=== PATIENT | female | born 1950 | race Caucasian/White ===

== ENCOUNTER 2016-05-16 06:23 | Inpatient (IN) ==
[2016-05-16] MEDS ORDERED: Clindamycin 900 MG/50 ML 900 MG/50 ML IV.SOLN IVPB ONE (06:45)
[2016-05-16] MEDS ORDERED: Ringers Solution, Lactated 1,000 ML IVC SCH (06:45)
[2016-05-16] MEDS ORDERED: *HR* FentaNYL (PF) 100 MCG/2 ML VIAL ONE (06:56)
[2016-05-16] MEDS ORDERED: *HR* Propofol 200 MG/20 ML VIAL IVP ONE (06:56)
[2016-05-16] MEDS ORDERED: *HR* Midazolam HCl 2 MG/2 ML VIAL ONE (06:56)
[2016-05-16] MEDS ORDERED: *HR* Rocuronium Bromide 50 MG/5 ML VIAL ONE (06:57)
[2016-05-16] MEDS ORDERED: *HR* Succinylcholine 200 MG/10 ML VIAL IVP ONE (06:57)
[2016-05-16] MEDS ORDERED: Ondansetron 4 MG/2 ML VIAL ONE (06:57)
[2016-05-16] MEDS ORDERED: Dexamethasone 4 MG/ML VIAL ONE (06:57)
[2016-05-16] MEDS ORDERED: Lidocaine -MPF 2% 2 ML VIAL ONE (06:57)
[2016-05-16] MEDS ORDERED: *HR* Phenylephrine 10 MG/ML VIAL ONE (07:01)
[2016-05-16] MEDS ORDERED: Lidocaine -MPF 4% 5 ML AMPUL ONE (07:01)
[2016-05-16] MEDS ORDERED: *HR* Remifentanil 1 MG VIAL IVP ONE ×2 (07:04)
[2016-05-16] MEDS ORDERED: *HR* Labetalol 100 MG/20 ML MDV IVP PRN (07:22)
[2016-05-16] MEDS ORDERED: *HR* Promethazine 25 MG/ML VIAL IVP PRN (07:22)
[2016-05-16] MEDS ORDERED: Gabapentin 300 MG CAPSULE PO STA (07:23)
--- NOTE | 2016-05-16 07:27 | Anesthesia Evaluation PreOp ---
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 NO residual weakness/deficits), Other (Anxiety/Depression maintained on Clonazepam. Lumbar radiculopathy L=RLE numbness, tingling, weakness) Other Medical History: Denies Any Significant HX Anesthesia History: No Prior Anesthetic Complications, Past Anesthesia (L-TKR, R -TKR 2014, Yovana, Appy, Hyster, B-CTR) Alcohol Use: none Drug use: none Medications and Allergies Albuterol Sulfate [Albuterol Inhaler] 2 puff IH Q4HR PRN 05/16/16 [History] Amlodipine Besylate 10 mg PO DAILY 05/16/16 [History] Atorvastatin Calcium [Lipitor] 20 mg PO HS 05/16/16 [History] Citalopram Hydrobromide [Celexa] 20 mg PO DAILY 05/16/16 [History] ClonazePAM [Klonopin] 0.5 mg PO BID 05/16/16 [History] Fenofibrate [Tricor] 54 mg PO DAILY 05/16/16 [History] Fluticasone Propionate Nasal [Flonase] 1 spr NS DAILY PRN 05/16/16 [History] Loratadine [Claritin] 10 mg PO DAILY 05/16/16 [History] Nystatin Cream [Mycostatin Cream] 1 appl TP BID PRN 05/16/16 [History] Omeprazole [PriLOSEC] 40 mg PO DAILY 05/16/16 [History] Oxaprozin [Daypro] 600 mg PO BID 05/16/16 [History] Tramadol HCl [Ultram] 50 mg PO Q6H PRN 05/16/16 [History] Allergies Penicillins Allergy (Verified 05/16/16 07:08) Hives aspirin Adverse Reaction (Verified 05/16/16 07:08) Nausea - Meds/Allergy Pre-op Review Medications Reviewed: Yes Allergies Reviewed: Yes Beta Blockers on Current Med List: No Anesthesia Results - Labs Laboratory Tests 12/29/16 12/29/16 12/29/16 12:30 12:30 12:30 WBC 3.8 L Hgb 14.8 Hct 43.3 Plt Count 240 PT 11.2 INR 1.0 APTT 31.8 Sodium 139 Potassium 3.7 Chloride 106 Carbon Dioxide 24 BUN 13 Creatinine 0.78 Est GFR (Non-Af Amer) > 60 - Imaging EKG: image reviewed Anesthesia Exam O2 Sat Height 1.52 m Height 1.52 m Weight 82.554 kg Weight 82.554 kg O2 Sat by Pulse Oximetry 96 O2 Sat by Pulse Oximetry 96 Vital Signs Temp Pulse Resp BP Pulse Ox 98.3 F 84 18 159/88 96 05/16/16 06:40 05/16/16 06:40 05/16/16 06:40 05/16/16 06:40 05/16/16 06:40 Height: 5'0 Weight: 178# BMI = 36 NPO (# of Hours): MNoc - HEENT Pupil (Motor): Pupils equal, EOMI Mallampati: II Teeth: Normal, Missing (fair dentition with multiple front lower teeth missing) Oral Opening: Greater than 3 - ASSEMBLY MEMBER LOC: Oriented [employer]SEM[employer] MEMBER Motor: Normal RUE, Normal LUE, Normal RLE, Normal LLE, Normal Face [employer]SEM[employer] MEMBER Sensory: Normal: RUE, LUE, RLE, LLE, Face - Cardiac Rhythm: Regular Murmur: None - Pulmonary Breath Sounds: bilateral Clear Respiratory Effort: Symmetrical Anesthesia Assess/Plan ASA Score: 3 Modified [place] Scale for Level of Consciousness: Cooperative, oriented, and tranquil Anesthetic Plan: General Monitoring Plan: Standard Monitors Recovery Plan: PACU Anes Supervising Prov Stmt: Pt seen/evaluated, R&B discussed, questions answered and consent obtained. Sera Gandhi MD
--- NOTE | 2016-05-16 07:41 | History & Physical Report ---
Date of Encounter: 05/16/16 Time of Encounter: 07:30 24 Hour HP Update - Instructions Instructions: If the History and Physical is less than 30 days old and was completed prior to A.M. admission and or procedure and has NOT been updated on calendar day of procedure please complete this update prior to performing procedure. - Update Patient reports changes in Medical Condition: No Changes in assessment/condition: No Changes in Medication: No Preop tests/diagnostics Reviewed: Yes Pre-Op MRSA Screen: Negative Surgery Remains Indicated: Yes Consent for Planned Operative Procedure(s) Verified: Yes - Pre-Operative Checklist Preoperative Checklist Indicated: No Prophylactic Antibiotic Ordered: Yes Home Medications Include Beta Adeel: No Beta Adeel Taken Today (Day of Surgery): No Beta Adeel Taken Yesterday (Day Prior to Surgery): No Is VTE Prophylaxis Indicated?: Yes
[2016-05-16] MEDS ORDERED: EPHEDrine 50 MG/ML VIAL ONE (08:06)
[2016-05-16] MEDS ORDERED: Neostigmine Methylsulfate 3 MG/3 ML SYRINGE ONE (10:40)
[2016-05-16] MEDS ORDERED: *HR* HYDROmorphone 2 MG/ML SYRINGE ONE (10:44)
--- NOTE | 2016-05-16 11:04 | Orthopedic Operative Note ---
Date of procedure: 05/16/16 Pre-op diagnosis: spondylolisthesis, lumbar stenosis Post-op diagnosis: same Operation/Findings: Posterior lumbar interbody fusion L4-L5: The patient successfully underwent general endotracheal anesthesia. The patient was given antibiotics prior to the start of the procedure. Compression boots and stockings were used for deep vein thrombosis prophylaxis. A Hinds catheter was placed. Leads for neuro monitoring were placed on the upper and lower extremities. This included the cranium. The neuro monitoring personnel confirmed there were satisfactory readings prior to the start of the procedure. The patient was turned prone on the Curtis table. The back was prepped and draped in the usual sterile fashion. An incision was was marked and centered over the involvedL4-5 levels in the mid line. The incision was deepened through the lumbar fascia. Bovie cautery and Greenwood elevators were used to reflect the paraspinal musculature at the lateral extent of the L4 and L5 transverse processes of the involved levels. Shantelle clamps were placed over the L4 and L5 spinous processes. An intraoperative lateral fluoroscopy graft was obtained. A conversation was held between the surgeon and radiologist and both confirmed we had the correct operative levels. We then placed pedicle screws in standard fashion with the aid of fluoroscopy and anatomic landmarks. Briefly a starter awl was used. A gearshift was subsequently used to enter the aeroplane pilot hole via a transpedicular route into the vertebral body. The aeroplane pilot hole was tapped with an undersized instrument, and subsequently four 6.5 x 40 mm pedicle screws were placed bilaterally at the indicated L4 and L5 levels. The screws were tested with the aid of the neurologic monitoring staff via pedicle screw stimulation. All reading suggested there was no significant cortical wall breech. The screws were also evaluated fluoro- graphically and appeared to be in satisfactory position. We then turned our attention to the decompression portion of the procedure. We removed the supraspinous and interspinous ligaments and subsequently the insertion of the ligamentum flavum on the undersurface of the proximal L4 lamina was dislodged with a curette. We then removed the ligamentum flavum as well as undercut the L4-5 facets at this level to decompress the lateral recesses. We also performed a L4 laminectomy. After the decompression which was over and above that which was required to place the interbody graft, the foramen and traversing roots at this L4-5 level were found to be free and patent. We also took part of the medial facet in order to aid in the decompression,. We then protected the neural elements including the thecal sac and traversing nerve root on the left with a dural retractor. We made an annulotomy into the L4-5 disc space and then removed entire disc material using Pituitary instruments. We trialed various size grafts after the endplates were prepared for graft insertion. A 10 x 26 enter body graft fit well within the L4-5 disc space. We obtained some bone from the left posterior superior iliac spine through us a separate incision and combined with this with the bone which we had saved from the laminectomy portion of the procedure. This autograft bone was first placed in the anterior portion of the L4-5 disc space and additional bone was placed within the interbody graft spacer. We then placed the interbody graft spacer obliquely across the disc space towards the midline while protecting the neural elements with a root retractor. When the graft was found to be in satisfactory position the mill dresser was removed. We then copiously irrigated the wound. We then decorticated the L4 and L5 transverse processes as well as the L4-5 facet joints of the involved levels to aid in the posterolateral fusion. We placed autograft bone in the lateral gutters over these regions. We then placed rods within the screw heads of the involved L4 and L5 levels and first locked the distal screws and then subsequently locked the proximal screws so as to improve and reduce the spondylolisthesis previously seen. We then closed the wound in layers with 1 Vicryl for the fascia, 2-0 Vicryl. Subcutaneous tissue, and Dermabond was used for skin closure. Sterile dressings were placed over the wound. The patient was turned supine on a hospital bed and extubated. All sponge instruments and needle counts were correct at the end of the procedure. The patient tolerated the procedure well without complications. Anesthesia: GETA Surgeon: López Stein Jr Estimated blood loss (cc): 150 Condition: stable Disposition: PACU
[2016-05-16] MEDS: *HR* HYDROmorphone (PF) 1 MG/ML SYRINGE IVP PRN ×2 (11:16→11:26)
[2016-05-16] MEDS ORDERED: CloNIDine Patch 0.1 MG PATCH (WEEKLY) TD ONE (11:36)
[2016-05-16] MEDS ORDERED: Ketorolac 30 MG/ML VIAL IVP ONE (11:36)
[2016-05-16] MEDS ORDERED: Fluticasone Propionate Nasal 50 MCG/SPRAY BOTTLE NS PRN (12:16)
[2016-05-16] MEDS ORDERED: Naloxone 0.4 MG/ML INJ IVP PRN (12:16)
[2016-05-16] MEDS ORDERED: Sennosides 8.6 MG TABLET PO PRN (12:16)
[2016-05-16] MEDS ORDERED: Nystatin Cream 15 GM TUBE TP PRN (12:16)
[2016-05-16] MEDS ORDERED: *HR* Morphine 2 MG/ML SYRINGE IVP PRN (12:16)
--- NOTE | 2016-05-16 12:16 | Anesthesia Evaluation Post Op ---
Date of Encounter: 05/16/16 Time of Encounter: 12:15 - Vital Signs Vital Signs: Vital Signs/O2 Sat/Glucose, Most Current Temp Pulse Resp BP Pulse Ox 05/16/16 12:00 97.4 F L 76 12 120/69 95 05/16/16 11:50 82 12 121/74 96 05/16/16 11:40 97.4 F L 76 8 130/76 94 L 05/16/16 11:30 80 10 132/72 94 L 05/16/16 11:20 84 16 141/78 98 05/16/16 11:10 97.5 F L 102 18 131/78 99 - Lungs Lungs: Clear Ascult./Percussion - Airway Airway: Non-obstructed - Cardiovascular Regular Rate - Mental Status Mental Status: Asleep with brisk response to light stimulation - Pain Pain Scale: 2 Pain Scale used: LinkPrabhakar (Faces) - Nausea Vomiting Nausea Vomiting: Responds to treatment with IV Meds - Hydration Hydration: NPO, Hinds catheter - Discharge PostOp Status: Transfer Patient to floor Anes Supervising Prov Stmt: Pt seen/evaluated, VSS and pt has met criteria for discharge to home. - MD Oksana
[2016-05-16] MEDS ORDERED: Clindamycin 600 MG/50 ML 600 MG/50 ML IV.SOLN IVPB SCH (16:00)
[2016-05-16] MEDS: clonazePAM 0.5 MG TABLET PO SCH (21:01)
[2016-05-16] MEDS: *HR* OxyCODONE Immed Rel 5 MG TABLET PO PRN (21:01)
[2016-05-16] MEDS: Ringers Solution, Lactated 1,000 ML IVC SCH (21:44)
[2016-05-17] MEDS: Clindamycin 600 MG/50 ML 600 MG/50 ML IV.SOLN IVPB SCH ×2 (00:18→06:00)
[2016-05-17] MEDS: *HR* Morphine 2 MG/ML SYRINGE IVP PRN (00:18)
[2016-05-17] MEDS: *HR* OxyCODONE Immed Rel 5 MG TABLET PO PRN ×3 (04:43→15:31)
[2016-05-17 07:17] LABS: BUN/Creatinine Ratio 13 (6-26); Blood Urea Nitrogen 9 mg/dL (7-20); Carbon Dioxide 24 mEq/L (19-29); Chloride 108 mEq/L (98-109); Glucose 96 mg/dL (70-99); Osmolality,Calculated 287 (280-300); Potassium 3.9 mEq/L (3.5-4.5); Sodium 139 mEq/L (136-145); eGFR For African Americans > 60 (> 60); eGFR For Non-African Americans > 60 (> 60)
[2016-05-17] MEDS: Loratadine 10 MG TABLET PO SCH (09:11)
[2016-05-17] MEDS: Fenofibrate 54 MG TABLET PO SCH (09:12)
[2016-05-17] MEDS: amLODIPine 5 MG TABLET PO SCH (09:12)
[2016-05-17] MEDS: clonazePAM 0.5 MG TABLET PO SCH ×2 (09:12→22:08)
[2016-05-17] MEDS: Ringers Solution, Lactated 1,000 ML IVC SCH ×2 (11:31→22:08)
[2016-05-17] MEDS: Ondansetron 4 MG/2 ML VIAL IVP PRN ×2 (11:44→17:52)
--- NOTE | 2016-05-17 12:00 | Spine Progress Note ---
Date of Encounter: 05/17/16 Time of Encounter: 11:59 Subjective Principal diagnosis: spondylolisthesis, lumbar stenosis Interval history: The patient is without complaints. Afebrile vital signs are stable. Dressing is clean dry and intact. Neurovascularly intact with regard to bilateral lower extremities. Fires all upper and lower extremity motor groups. . Assessment : stable. Plan mobilize ,continue analgesics, discharge planning. Objective Vital signs: Vital Signs Temp Pulse Resp BP Pulse Ox 05/17/16 10:55 98.3 F 87 18 117/73 95 05/17/16 06:47 98.3 F 86 14 128/72 96 05/17/16 04:00 98.2 F 73 16 95/55 92 L 05/17/16 00:30 94 L 05/17/16 00:00 98.0 F 66 16 104/66 94 L 05/16/16 20:00 97.9 F 82 16 107/69 96 05/16/16 15:21 98.0 F 99 12 108/72 96 05/16/16 15:05 97.7 F 94 18 107/71 96 05/16/16 14:25 97.9 F 80 13 102/67 96 05/16/16 13:21 97.7 F 94 13 129/72 95 05/16/16 13:15 95 05/16/16 12:49 97.5 F L 87 12 131/68 94 L 05/16/16 12:20 98.0 F 81 12 113/64 95 05/16/16 12:00 97.4 F L 76 12 120/69 95 Intake and Output 05/16/16 05/17/16 05/17/16 23:59 07:59 15:59 Intake Total 1775 / 1775 360 / 360 Output Total 1700 / 1700 750 / 750 Balance 75 / 75 -390 / -390 Intake: IV Fluids 1050 / 1050 Lactated Ringers 1,000 ML 1000 / 1000 @ 100 mls/hr IVC .Q10H ROLANDO Rx#:[id number] Cleocin 600 MG/50 ML 600 50 / 50 mg In 50 ml @ 50 mls/hr IVPB Q8HR ROLANDO Rx#: [id number] Oral 725 / 725 360 / 360 Output: Urine 900 / 900 750 / 750 Catheter 800 / 800 Other: Meal Breakfast - Labs CBC & BMP: 05/17/16 05:37 Consult Discharge Plan - Plan Referrals: Dionna Buckner [Primary Care Provider] -
[2016-05-18] MEDS: *HR* OxyCODONE Immed Rel 5 MG TABLET PO PRN ×2 (04:18→17:23)
[2016-05-18] MEDS: Ondansetron 4 MG/2 ML VIAL IVP PRN (04:18)
[2016-05-18] MEDS: amLODIPine 5 MG TABLET PO SCH (09:17)
[2016-05-18] MEDS: clonazePAM 0.5 MG TABLET PO SCH ×2 (09:17→20:19)
[2016-05-18] MEDS: Fenofibrate 54 MG TABLET PO SCH (09:17)
[2016-05-18] MEDS: Loratadine 10 MG TABLET PO SCH (09:17)
[2016-05-18] MEDS: *HR* Morphine 2 MG/ML SYRINGE IVP PRN ×2 (09:50→20:20)
--- NOTE | 2016-05-18 13:35 | Spine Progress Note ---
Date of Encounter: 05/18/16 Time of Encounter: 13:34 Subjective Principal diagnosis: spondylolisthesis, lumbar stenosis Interval history: The patient is without complaints. Afebrile vital signs are stable. Incision is clean dry and intact. Neurovascularly intact with regard to bilateral lower extremities. Fires all upper and lower extremity motor groups. . Assessment : stable. Plan mobilize ,continue analgesics, discharge planning, likely to rehabilitation. Objective Vital signs: Vital Signs Temp Pulse Resp BP Pulse Ox 05/18/16 10:58 98.7 F 88 16 115/66 94 L 05/18/16 09:28 96 05/18/16 06:51 98.9 F 96 16 118/64 87 L 05/18/16 04:00 100.5 F H 87 16 114/68 93 L 05/18/16 00:00 99.3 F 87 16 102/66 92 L 05/17/16 19:00 98.2 F 79 17 121/74 94 L 05/17/16 15:11 98.5 F 83 16 109/69 94 L Intake and Output 05/17/16 05/18/16 05/18/16 23:59 07:59 15:59 Intake Total 1240 / 1240 200 / 200 Output Total 325 / 325 Balance 1240 / 1240 -125 / -125 Intake: IV Fluids 1000 / 1000 Lactated Ringers 1,000 ML 1000 / 1000 @ 100 mls/hr IVC .Q10H ROLANDO Rx#:[id number] Oral 240 / 240 200 / 200 Output: Urine 325 / 325 Other: Meal Dinner Percent of Meal Consumed 15% - Labs CBC & BMP: 05/17/16 05:37 Consult Discharge Plan - Plan Referrals: Dionna Buckner [Primary Care Provider] - Angelita Wynn, PAC [Physician Cushion Gum Applicator] - 05/30/16 9:40 am
[2016-05-19] MEDS: Methyl Salicylate/Menthol 28 GM TUBE TP PRN ×2 (00:04→15:11)
[2016-05-19] MEDS: *HR* OxyCODONE Immed Rel 5 MG TABLET PO PRN ×2 (00:11→08:58)
[2016-05-19] MEDS: *HR* Morphine 2 MG/ML SYRINGE IVP PRN (05:04)
[2016-05-19 07:19] VITALS: BP 118/67
[2016-05-19] MEDS: amLODIPine 5 MG TABLET PO SCH (08:58)
[2016-05-19] MEDS: Fenofibrate 54 MG TABLET PO SCH (08:58)
[2016-05-19] MEDS: Loratadine 10 MG TABLET PO SCH (08:58)
[2016-05-19] MEDS: clonazePAM 0.5 MG TABLET PO SCH (08:58)
--- NOTE | 2016-05-19 12:47 | Discharge Summary ---
Date of Encounter: 05/19/16 Time of Encounter: 12:45 - Discharge Diagnosis (1) Spondylolisthesis Priority: Primary Status: Chronic Qualifiers: Spinal region: lumbar Qualified Code(s): M43.16 - Spondylolisthesis, lumbar region (2) Lumbar stenosis Priority: Secondary Status: Chronic - Discharge Medications Prescriptions: OxyCODONE Immed Rel [Roxicodone 5 MG] 5 mg PO Q6HR PRN #20 tablet PRN Reason: Severe Pain Home Medications: Albuterol Sulfate [Albuterol Inhaler] 2 puff IH Q4HR PRN 05/16/16 [History] Amlodipine Besylate 10 mg PO DAILY 05/16/16 [History] Atorvastatin Calcium [Lipitor] 20 mg PO HS 05/16/16 [History] Citalopram Hydrobromide [Celexa] 20 mg PO DAILY 05/16/16 [History] ClonazePAM [Klonopin] 0.5 mg PO BID 05/16/16 [History] Fenofibrate [Tricor] 54 mg PO DAILY 05/16/16 [History] Fluticasone Propionate Nasal [Flonase] 1 spr NS DAILY PRN 05/16/16 [History] Loratadine [Claritin] 10 mg PO DAILY 05/16/16 [History] Nystatin Cream [Mycostatin Cream] 1 appl TP BID PRN 05/16/16 [History] Omeprazole [PriLOSEC] 40 mg PO DAILY 05/16/16 [History] Oxaprozin [Daypro] 600 mg PO BID 05/16/16 [History] Tramadol HCl [Ultram] 50 mg PO Q6H PRN 05/16/16 [History] OxyCODONE Immed Rel [Roxicodone 5 MG] 5 mg PO Q6HR PRN #20 tablet 05/19/16 [Rx] Allergies/Adverse Reactions: Allergies Penicillins Allergy (Verified 05/16/16 07:08) Hives aspirin Adverse Reaction (Verified 05/16/16 07:08) Nausea - Impressions ITS Impressions Fluoroscopy 05/16/16 08:25 IMPRESSION: Intraprocedural fluoroscopic spot images as above. See separate procedure report for more information. Portable lumbar spine shows fusion of L4-5. D/ / 05/16/2016 11:28:55 Panfilo Garcia MD / Tequila Still Interpreting Provider: Panfilo Garcia MD Lumbar Spine X-Ray 05/16/16 08:25 IMPRESSION: Intraprocedural fluoroscopic spot images as above. See separate procedure report for more information. Portable lumbar spine shows fusion of L4-5. D/ / 05/16/2016 11:28:55 Panfilo Garcia MD / Tequila Still Interpreting Provider: Panfilo Garcia MD Date of admission: 05/16/16 12:36 Primary care physician: Dionna Buckner Consults: 05/16/16 12:16 Consult to Occupational Therapy [CONS] Routine Comment: Evaluate, develop and implement POC Consult to Physical Therapy [CONS] Routine Comment: Evaluate, develop and implement POC Consult to Spine Navigator [CONS] [CONS] Routine - Patient Status Disposition: Transfer SNF Condition: Good Functional capacity at discharge: uses cane/walker Overall status at discharge: patient is progressing back to baseline - Discharge Instructions Follow Up With: Dionna Buckner [Primary Care Provider] - Angelita Wynn PAC [Physician Dry Cleaning Manager] - 05/30/16 9:40 am Additional Instructions: Discharge Instructions: Lumbar Please call [facility] ([phone]), your Primary Care Physician, or report to the ER if you have any of the following symptoms: Fever greater that 101.5, increased pain/redness/drainage/odor for your incision site or any other concerning symptoms. ACTIVITY * May Shower * No Tub Baths * No lifting greater than 10 pounds * No Smoking * No Swimming * No off Ground Activities (Running, Climbing, Ladders, Horseback Riding) * No Driving * Wear Back Brace when up walking if lumbar fusion done MEDICATIONS: Upon discharge resume your home medications. Take all the medications as prescribed. Take a stool softener if taking narcotic pain medications. Stool softeners are only effective if you drink enough fluids. Drink 6-8 glass of water or fluids a day, unless this is not allowed for another health problem. Despite using stool softeners, if you haven't had a bowel movement in 3 days, please switch to a gentle laxative. Gentle laxatives are sold over the counter. You should have a bowel movement within 24 hours, if not call the office. You will be discharged from the hospital with a prescription for pain medication. You are encouraged to decrease the use of narcotic pain medication as tolerated. Should you require a refill, please call the office. It is best to call 48-72 hours in advance of needing a prescription refill so you don't run out of medication. WOUND CARE: Remove Dressing Tomorrow. Leave incision open to air. Pat dry when you get out of the shower. FOLLOW-UP: Please follow up with your surgeon in the orthopedic clinic in 2 weeks from the day of surgery. References: [employer] (www.apta.org) - Diet and Activity Activity: as per physical therapy - Hospital Course Hospital course: Ms. Tuttle is a 65 year old female The patient had an uneventful postoperative course. Progressed from intravenous analgesic needs to oral analgesic needs only. Remained neurovascularly intact and mobilized satisfactorily. All intraoperative and/or postoperative radiographic studies were satisfactory. Patient is discharged with plan for rehabilitation and follow-up in 2 weeks post discharge on analgesic medication and patient's home medications. - Time Spent with Patient Total time spent providing and/or coordinating discharge services: - VTE Documentation of Mechanical Device: Intermittent pneumatic compression device
== END 2016-05-19 17:28 | DRG 460 ==
LOC: SAMDAY 06:23 → 3NENU 12:36
PROVIDERS: ADMIT Orthopaedic Surgery Orthopaedic Surgery of the Spine; ATTEND Orthopaedic Surgery Orthopaedic Surgery of the Spine

== ENCOUNTER 2017-12-03 14:48 | Inpatient (IN) ==
--- NOTE | 2017-12-02 22:13 | Discharge Summary ---
<Martin El - Last Filed: 12/03/17 15:45> Orders not resulted at time of discharge: Pending orders 12/03/17 00:01 XR knee LT limited 1-2V [XR] Routine H/H [Hemoglobin and Hematocrit] [HEME] Routine Date of Encounter: 12/03/17 - Discharge Diagnosis (1) Obesity (BMI 35.0-39.9 without comorbidity) Priority: Secondary Status: Chronic (2) Spondylolisthesis Priority: Secondary Status: Chronic Qualifiers: Spinal region: lumbar Qualified Code(s): M43.16 - Spondylolisthesis, lumbar region (3) Lumbar stenosis Priority: Secondary Status: Chronic Qualifiers: Neurogenic claudication status: unspecified Qualified Code(s): M48.061 - Spinal stenosis, lumbar region without neurogenic claudication (4) Loosening of knee joint prosthesis Priority: Primary Status: Chronic Qualifiers: Encounter type: subsequent encounter Qualified Code(s): T84.038D - Mechanical loosening of other internal prosthetic joint, subsequent encounter; Z96.659 - Presence of unspecified artificial knee joint (5) HTN (hypertension) Priority: Secondary Status: Chronic Qualifiers: Hypertension type: essential hypertension Qualified Code(s): I10 - Essential (primary) hypertension (6) HLD (hyperlipidemia) Priority: Secondary Status: Acute Qualifiers: Hyperlipidemia type: unspecified Qualified Code(s): E78.5 - Hyperlipidemia , unspecified (7) Status post revision of total knee Priority: Primary Status: Acute Qualifiers: Laterality: left Qualified Code(s): Z96.652 - Presence of left artificial knee joint - Hospital Course Hospital course: Ms. Tuttle is a 67 year old female - Time Spent with Patient Total time spent providing and/or coordinating discharge services: - Discharge Medications Prescriptions: Rivaroxaban [Xarelto] 15 mg PO BID 21 Days #42 tablet Home Medications: Fluticasone Propionate Nasal [Flonase] 1 spr NS DAILY PRN 05/16/16 [History] Loratadine [Claritin] 10 mg PO DAILY 05/16/16 [History] Nystatin Cream [Mycostatin Cream] 1 appl TP BID PRN 05/16/16 [History] Omeprazole [PriLOSEC] 40 mg PO DAILY 05/16/16 [History] OxyCODONE Immed Rel [Roxicodone 5 MG] 5 mg PO Q6HR PRN 7 Days #28 tablet [Rx] Amlodipine Besylate 10 mg PO DAILY 12/03/17 [History] Gabapentin [Neurontin] 600 mg PO TID 12/03/17 [History] Oxybutynin Chloride [Ditropan Xl] 5 mg PO BID 12/03/17 [History] Ranitidine HCl [Heartburn Relief] 150 mg PO HS 12/03/17 [History] Simvastatin [Zocor] 5 mg PO HS 12/04/17 [History] clonazePAM [Klonopin] 1 mg PO TID PRN 12/04/17 [History] Cyclobenzaprine [Flexeril] 10 mg PO TID PRN tablet 12/05/17 [Rx] Rivaroxaban [Xarelto] 15 mg PO BID 21 Days #42 tablet 12/05/17 [Rx] Allergies/Adverse Reactions: 3 Allergy/AdvReac Type Severity Reaction Status Date / Time iodine Allergy Rash Verified 12/03/17 15:34 niacin Allergy Hives Verified 12/03/17 15:34 [From Niaspan Extended-Release] Penicillins Allergy Hives Verified 05/16/16 07:08 Sulfa (Sulfonamide Allergy Rash Verified 12/03/17 15:34 Antibiotics) aspirin AdvReac Nausea Verified 05/16/16 07:08 Primary care physician: Dionna Buckner - Patient Status Disposition: Transfer Inpatient Rehab Fac Condition: Good - Discharge Instructions Follow Up With: Dionna Buckner [Primary Care Provider] - Martin El MD [Partnered Physician] - 01/02/18 4:40 pm Ayah Portillo PAC [Physician Loom Technician] - 12/13/17 9:45 am (ALSO, 12/21/17 @ 9AM) Additional Instructions: Discharge Instructions: Total Knee Replacement Please call [facility] ([phone]), your Primary Care Physician, or report to the Emergency Room if you have any of the following symptoms: Nausea, vomiting, fever greater that 101.5, swelling, chest pain, shortness of breath, increased pain/redness/drainage/odor for your incision site, numbness/ tingling, or any other concerning symptoms. ACTIVITY:Weight-bearing as tolerated. You may progress off support (crutches or walker) as tolerated. MEDICATIONS: Upon discharge resume your home medications. Take all the medications as prescribed. Take a stool softener if taking narcotic pain medications. Stool softeners are only effective if you drink enough fluids. Drink 6-8 glass of water or fluids a day, unless this is not allowed for another health problem. Despite using stool softeners, if you haven't had a bowel movement in 3 days, please switch to a gentle laxative. Gentle laxatives are sold over the counter. You should have a bowel movement within 24 hours, if not call the office. You will be discharged from the hospital with a prescription for pain medication. You are encouraged to decrease the use of narcotic pain medication as tolerated. Should you require a refill, please call the office. [facility] prescribes narcotic pain medication for only 4-6 weeks after surgery. If you require pain medication beyond this time period, you may be referred to your Primary Care Physician or to the Pain Clinic for further evaluation. Plan ahead for refills on pain medication as many narcotics either need to be picked up at the office or mailed. It is best to call 48-72 hours in advance of needing a prescription refill so you don't run out of medication. To help control the post-operative pain, you may take NSAIDs (Aleve,Advil, Motrin, Ibuprofen, Naprosyn) or Tylenol as prescribed on the bottle in addition to the pain medication. ANTICOAGULATION (blood thinners): Continue your Aspirin, Lovenox or Coumadin as prescribed to help prevent a blood clot in the leg or in the lungs. As long as your incision remains dry and you tolerate the NSAIDs (Aleve, Advil, Motrin, ibuprofen, naprosyn), it is OK to use the NSAIDS while you are taking your anticoagulation medication. Should your incision start to drain, stop the NSAID and contact our office. Common symptoms of blood clot in the legs include: localized pain, swelling, calf tenderness, redness or discoloration of the skin. Blood clot in the lung symptoms include: shortness of breath, rapid pulse, sweating, and chest pain that worsens with deep breathing, coughing up blood, lightheadedness, feelings of anxiety. If you experience any of these symptoms notify your physician immediately, go to the emergency room, or if having trouble breathing, call 911. WOUND CARE: Leave the dressing on for 7 to 10days. You may change the dressing if it becomes saturated greater than 50%. Do not get the dressing wet at anytime. Wash your hands with antibacterial soap, rinse and dry prior to any wound care. If you have sandy the visiting nurse or rehab facility can remove the stapes 10-14 days after surgery and place steri-strips across the wound. Leave the steri-strips in place until they fall off on their won. You may let water from the shower run on top of the steri-strips. If you do not have a visiting nurse or rehab facility, you will need to return to the office at 10-14 days for the sandy to be removed. If you have itching or redness around the dressing call the office. FOLLOW-UP: Please follow up with your surgeon in the orthopedic clinic in 4 weeks from the day of surgery. If you have sandy that need to be removed, you will need to come back to the office in 10-14 days from the day of surgery. <Ayah Portillo - Last Filed: 12/05/17 08:56> Date of Encounter: 12/05/17 - Discharge Diagnosis (1) Status post revision of total knee Priority: Primary Status: Acute Qualifiers: Laterality: left Qualified Code(s): Z96.652 - Presence of left artificial knee joint (2) Loosening of knee joint prosthesis Priority: Primary Status: Chronic Qualifiers: Encounter type: subsequent encounter Qualified Code(s): T84.038D - Mechanical loosening of other internal prosthetic joint, subsequent encounter; Z96.659 - Presence of unspecified artificial knee joint (3) HTN (hypertension) Priority: Secondary Status: Chronic Qualifiers: Hypertension type: essential hypertension Qualified Code(s): I10 - Essential (primary) hypertension (4) HLD (hyperlipidemia) Priority: Secondary Status: Acute Qualifiers: Hyperlipidemia type: unspecified Qualified Code(s): E78.5 - Hyperlipidemia , unspecified (5) Obesity Priority: Secondary Status: Chronic Qualifiers: Obesity type: due to excess calories Obesity classification: adult class 2 (BMI 35 - 39.9) Serious obesity comorbidity presence: without serious comorbidity Body mass index: BMI 37.0-37.9 Qualified Code(s): E66.09 - Other obesity due to excess calories; Z68.37 - Body mass index (BMI) 37.0-37.9, adult (6) Allergic to aspirin Priority: Secondary Status: Chronic (7) DVT (deep venous thrombosis) Priority: Primary Status: Acute Comments: Started on Xarelto 15mg BID on 12/04/17. Will continue this until December 25. Will then transition to Xarelto 20mg once daily. Qualifiers: DVT location: lower extremity Affected thrombotic vein of extremity: tibial Chronicity: acute Laterality: left Qualified Code(s): I82.442 - Acute embolism and thrombosis of left tibial vein (8) Obesity (BMI 35.0-39.9 without comorbidity) Status: Chronic (9) Lumbar stenosis Status: Chronic Qualifiers: Neurogenic claudication status: unspecified Qualified Code(s): M48.061 - Spinal stenosis, lumbar region without neurogenic claudication - Hospital Course Hospital course: Ms. uTttle is a 67 year old female Diagnosed with DVT on 12/04 - Started on Xarelto 15mg BID on 12/04/17. Will continue this until December 25. Will then transition to Xarelto 20mg once daily. - Time Spent with Patient Total time spent providing and/or coordinating discharge services: Primary care physician: Dionna Buckner <Angelita Holder E - Last Filed: 12/06/17 22:44> Orders not resulted at time of discharge: Pending orders 12/03/17 18:07 US anesthesia pain block [US] Stat 12/03/17 19:15 Culture,Anaerobic [RM] Routine Date of Encounter: 12/06/17 Time of Encounter: 08:30 - Discharge Diagnosis (1) Status post revision of total knee Priority: Primary Status: Acute Qualifiers: Laterality: left Qualified Code(s): Z96.652 - Presence of left artificial knee joint (2) HLD (hyperlipidemia) Priority: Secondary Status: Chronic Qualifiers: Hyperlipidemia type: unspecified Qualified Code(s): E78.5 - Hyperlipidemia , unspecified (3) HTN (hypertension) Priority: Secondary Status: Chronic Qualifiers: Hypertension type: essential hypertension Qualified Code(s): I10 - Essential (primary) hypertension (4) Loosening of knee joint prosthesis Priority: Primary Status: Chronic Qualifiers: Encounter type: subsequent encounter Qualified Code(s): T84.038D - Mechanical loosening of other internal prosthetic joint, subsequent encounter; Z96.659 - Presence of unspecified artificial knee joint (5) DVT (deep venous thrombosis) Priority: Secondary Status: Acute Qualifiers: DVT location: lower extremity Affected thrombotic vein of extremity: tibial Chronicity: acute Laterality: left Qualified Code(s): I82.442 - Acute embolism and thrombosis of left tibial vein (6) Allergic to aspirin Priority: Secondary Status: Chronic - Hospital Course Hospital course: Ms. Tuttle is a 67 year old female Discontinue brace - Time Spent with Patient Total time spent providing and/or coordinating discharge services: Date of admission: 12/03/17 22:04 Primary care physician: Dionna Buckner Consults: 12/04/17 00:39 Consult to Occupational Therapy [CONS] Routine Comment: Evaluate, develop and implement POC Reason for Consult: post knee surgery Does patient have active BEDREST order?: No Is patient medically & hemodynamically stable?: Yes Consult to Orthopedic Navigator [CONS] [CONS] Routine Consult to Physical Therapy [CONS] Routine Comment: Evaluate, develop and impliment POC Reason for Consult: post knee surgery Does patient have active BEDREST order?: No Is patient medically & hemodynamically stable?: Yes Consult to Lead Process Engineer [CONS] Routine Reason for SW Consult: post op joint replacement RT Post Op Consult [CONS] Routine Anticipated date of discharge: 12/06/17 Labs on day of discharge: Labs from last 24 hours 12/06/17 12/06/17 12/05/17 01:09 01:09 15:47 Hgb 10.4 L Hct 31.7 L Sodium 138 Potassium 4.0 Chloride 103 Carbon Dioxide 25 BUN 12 Creatinine 0.67 Est GFR ( Amer) > 60 Est GFR (Non-Af Amer) > 60 BUN/Creatinine Ratio 18 Glucose 115 H Calculated Osmolality 287 Calcium 9.1 Crossmatch See Detail Preliminary micro results at discharge 12/03/17 19:15 Anaerobic Culture - Preliminary Left Knee At this time, no anaerobic growth is present. The culture will be finalized after 5 days of incubation. - Impressions ITS Impressions Knee X-Ray 12/03/17 00:01 IMPRESSION: No radiographic evidence of complication status post left total knee arthroplasty. D/ / Duc Bruce MD / Duc Bruce MD Interpreting Provider: Duc Bruce MD - Patient Status Functional capacity at discharge: uses cane/walker Overall status at discharge: patient is progressing back to baseline - Diet and Activity Activity: as per physical therapy Diet: advance to your usual diet
[2017-12-03] MEDS ORDERED: Clindamycin 900 MG/50 ML 900 MG/50 ML IV.SOLN IVPB ONE (15:29)
[2017-12-03] MEDS ORDERED: Ringers Solution, Lactated 1,000 ML IVC SCH (15:30)
--- NOTE | 2017-12-03 15:37 | History & Physical Report ---
Date of Encounter: 12/03/17 Time of Encounter: 15:36 24 Hour HP Update - Instructions Instructions: If the History and Physical is less than 30 days old and was completed prior to A.M. admission and or procedure and has NOT been updated on calendar day of procedure please complete this update prior to performing procedure. - Update Patient reports changes in Medical Condition: No Changes in examination, assessment, or condition: No Changes in Medication: No Preop tests/diagnostics Reviewed: Yes Surgery Remains Indicated: Yes Consent for Planned Operative Procedure(s) Verified: Yes - Pre-Operative Checklist Preoperative Checklist Indicated: No Prophylactic Antibiotic Ordered: Yes Is VTE Prophylaxis Indicated?: Yes
[2017-12-03] MEDS ORDERED: Famotidine 20 MG/2 ML VIAL IVP ONE (16:38)
[2017-12-03] MEDS ORDERED: Acetaminophen IV 1,000 MG/100 ML INFUS..BTL IVPB ONE (16:39)
[2017-12-03] MEDS ORDERED: Pregabalin 75 MG CAPSULE PO ONE (16:39)
--- NOTE | 2017-12-03 16:44 | Anesthesia Evaluation PreOp ---
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: TIA (approx 2013) Other Medical History: Denies Any Significant HX Anesthesia History: No Prior Anesthetic Complications, Past Anesthesia (L-TKR, R -TKR, Yovana, Apy, Hyser, B-CTR, PLIF 09/2016) Alcohol Use: none Drug use: none Medications and Allergies Atorvastatin Calcium [Lipitor] 20 mg PO HS 05/16/16 [History] Fluticasone Propionate Nasal [Flonase] 1 spr NS DAILY PRN 05/16/16 [History] Loratadine [Claritin] 10 mg PO DAILY 05/16/16 [History] Nystatin Cream [Mycostatin Cream] 1 appl TP BID PRN 05/16/16 [History] Omeprazole [PriLOSEC] 40 mg PO DAILY 05/16/16 [History] clonazePAM [Klonopin] 0.5 mg PO BID 05/16/16 [History] Enoxaparin [Lovenox] 30 mg SQ Q12HR 10 Days #20 syr 12/02/17 [Rx] OxyCODONE Immed Rel [Roxicodone 5 MG] 5 mg PO Q6HR PRN 7 Days #28 tablet [Rx] Amlodipine Besylate 10 mg PO DAILY 12/03/17 [History] Atorvastatin Calcium [Lipitor] 20 mg PO HS 12/03/17 [History] Baclofen [Lioresal] 10 mg PO TID 12/03/17 [History] Gabapentin [Neurontin] 0.5 tab PO HS 12/03/17 [History] Oxybutynin Chloride [Ditropan Xl] 5 mg PO BID 12/03/17 [History] Ranitidine HCl [Heartburn Relief] 150 mg PO HS 12/03/17 [History] 3 Allergy/AdvReac Type Severity Reaction Status Date / Time iodine Allergy Rash Verified 12/03/17 15:34 niacin Allergy Hives Verified 12/03/17 15:34 [From Niaspan Extended-Release] Penicillins Allergy Hives Verified 05/16/16 07:08 Sulfa (Sulfonamide Allergy Rash Verified 12/03/17 15:34 Antibiotics) aspirin AdvReac Nausea Verified 05/16/16 07:08 - Meds/Allergy Pre-op Review Medications Reviewed: Yes Allergies Reviewed: Yes Beta Blockers on Current Med List: No Anesthesia Results - Labs Laboratory Tests 05/17/16 11/09/17 11/29/17 05:37 11:17 15:00 WBC 5.1 Hgb 14.0 Hct 41.4 Plt Count 250 Sodium 135 L Potassium 3.4 L Chloride 105 Carbon Dioxide 20 L BUN 15 Creatinine 0.75 Est GFR (Non-Af Amer) > 60 Glucose 96 Anesthesia Exam O2 Sat Height 1.52 m Height 1.52 m Weight 81.647 kg Weight 81.647 kg O2 Sat by Pulse Oximetry 94 Vital Signs Temp Pulse Resp BP Pulse Ox 98.3 F 78 16 138/89 94 12/03/17 15:36 12/03/17 15:36 12/03/17 15:36 12/03/17 15:36 12/03/17 15:36 Height: 5'9" Weight: 185# BMI= 35.2 NPO (# of Hours): MNoc Pain Scale Used: Numeric (1 - 10) - HEENT Pupil (Motor): Pupils equal, EOMI Mallampati: II Teeth: Normal, Poor dentition Oral Opening: Greater than 3 - LICENSED INVESTMENT SALES ASSISTANT LOC: Oriented 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 ASSISTANT Motor: Normal RUE, Normal LUE, Normal RLE, Normal Face, Deficit LLE (LLE jitteriness/tremors & mild weakness) 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 Sera Gandhi MD
[2017-12-03] MEDS ORDERED: Naloxone 0.4 MG/ML INJ IVP PRN (17:18)
[2017-12-03] MEDS ORDERED: *HR* Labetalol 100 MG/20 ML MDV IVP PRN (17:18)
[2017-12-03] MEDS ORDERED: *HR* Morphine 2 MG/ML SYRINGE IVP PRN (17:18)
[2017-12-03] MEDS ORDERED: *HR* OxyCODONE Immed Rel 5 MG TABLET PO PRN (17:18)
[2017-12-03] MEDS ORDERED: Lidocaine -MPF 2% 2 ML VIAL ONE ×2 (17:22→20:32)
[2017-12-03] MEDS ORDERED: *HR* Midazolam HCl 2 MG/2 ML VIAL ONE ×2 (17:22→18:04)
[2017-12-03] MEDS ORDERED: *HR* Propofol 200 MG/20 ML VIAL IVP ONE (17:22)
[2017-12-03] MEDS ORDERED: *HR* FentaNYL (PF) 100 MCG/2 ML VIAL ONE ×2 (17:22→20:31)
[2017-12-03] MEDS ORDERED: Ondansetron 4 MG/2 ML VIAL ONE (17:22)
[2017-12-03] MEDS ORDERED: Dexamethasone 4 MG/ML VIAL ONE (17:24)
[2017-12-03] MEDS ORDERED: ROPIVACAINE HCL/PF 0.5% 30 ML VIAL ONE ×2 (17:39→20:39)
[2017-12-03] MEDS ORDERED: Tetracaine/PF 20 MG/2 ML AMPUL ONE (17:39)
[2017-12-03] MEDS ORDERED: Lidocaine -MPF 2% 5 ML VIAL ONE (17:40)
[2017-12-03] MEDS ORDERED: *HR* Enoxaparin 30 MG/0.3 ML SYRINGE SQ SCH (18:00)
[2017-12-03] MEDS ORDERED: Ethanol\\Acetic Acid\\Na Ace\\Ben 1,000 ML IRRIG.SOLN IR ONE (18:29)
--- NOTE | 2017-12-03 18:29 | Anesthesia Procedures ---
Date of Encounter: 12/03/17 Time of Encounter: 18:18 Procedures: Anesthesia - Nerve Block Procedure Date: 12/03/17 Time: 18:18 Surgical Procedure: left total knee replacment Checklist: Correct Patient Identifier, Correct procedure, History checked Correct side: Left Blood Thinner: No Monitor Applied: BP, Pulse Oximetry Supplemental Oxygen via Nasal Cannula (L/min): 2 Sedation: Versed (mg): 2 Indication: Post Op Analgesia Block Type: Other (adductor, and ipack) Sterile Technique: Yes Ultrasound used: Yes Anatomy identified: Yes Visual spread of Local: Yes Neuro Stimulation: No Smooth Injection of Local: Yes Pain with Injection of Local: No Prep: Chlorhexadine Needle: 21 x 100 mm Stimuplex Local: Ropivacaine (25ml 0.5% rop with 2ml tetracaine. for adductor canal ), Other (30ml 0.25% bup with 2ml tetracaine, for ipack. 2ml lido for skin) Volume (cc): 55 Number of Attempts: 1 Complications: None/effective block Vitals: vss though out, block per request of surgeon.
[2017-12-03] MEDS ORDERED: *HR* PHENYLEPHRINE 1,000 MCG/10 ML SYRINGE IVP ONE (19:33)
[2017-12-03] MEDS ORDERED: EPHEDrine 50 MG/ML VIAL ONE (19:50)
--- NOTE | 2017-12-03 20:08 | Orthopedic Operative Note ---
Date of procedure: 12/03/17 Pre-op diagnosis: Aseptic loosening left total knee Post-op diagnosis: same Procedure: Procedure: Left revision robotic-assisted Total knee replacement Estimated blood loss: 400 cc Hardware: Metal and polyethylene replacement. Ron Femur: 1 Tibia: 2 TS insert: 25 Patella: 36 Exam Under anesthesia: 5 degrees hyperextension 11 degree varus as calculated by the robot full flexion and no instability Procedural Notes: Grade 3 arthritic changes patella, aseptic loosening tibial femoral components. Operative procedure: The patient was brought to the operating room and placed on the operating room table. After general anesthesia was administered the operative knee was examined. Findings were noted in the exam under anesthesia. The operative extremity was prepped and draped in sterile surgical fashion. The patient received IV antibiotics prior to skin incision. A standard midline incision was made centered over the patella through the old incision. The incision was made through the skin and subcutaneous tissue. A medial parapatellar tendon approach was performed. Cultures were obtained at this point. No abnormal fluid was identified. Care was taken to preserve tissue along the medial aspect of the patella. And to protect the patella tendon. The deep MCL was released off the medial tibia. The infra patella fat pad was excised. The patella was everted and cut was made at the level of the insertion of the quadriceps and patella tendon. The patella was sized to a 36 the guide was seated and the lug holes are drilled. Knee was brought into flexion. Patient noted to have rate 3 arthritic changes undersurface of patella. Steinmann pins were placed in the tibia and the femur for the tibial and femoral arrays respectively. Checkpoints were also placed in the tibia and the femur for calculation purposes. The knee including the femur and the tibial registered. Osteophytes, ACL and PCL were excised at this point. Extension and flexion were assessed with a valgus stress components were adjusted on the computer to balance the knee. The patient had a mobile bearing Deb the post was transected and the poly-was removed. The femoral component was removed utilizing an oscillating saw and osteotome femoral component was loose and removed without any bone loss. The same technique was used to remove the tibial component. This was also removed without any bone loss was also loose. Femoral cuts were made first with robotic assistance, these included the anterior cut posterior cuts chamfer cuts. Tibial cut was then performed with robotic assistance as well. Bone fragments were removed. The size 1 femoral guide was seated box cut was made lug holes are drilled. The size 2 tibial tray was seated and prepared with the fin cutter. Trial reduction with the 25 TS Deb revealed extension of 5 degrees degree and 3 degree varus full flexion. No varus valgus instability. Trial reduction revealed excellent patella tracking. All trial components were removed all bony surfaces were irrigated. The Tibia was seated followed by the femur, The Deb size 25 was seated and secured patella. Patient had similar findings for motion and stability. The knee was closed by the PA. The knee was then irrigated out with 2 L of pulse irrigation. The extensor mechanism was closed with #2 FiberWire suture and #2 PDS suture. The subcutaneous tissue was then irrigated and closed deep with #1 PDS suture superficially with 0 PDS suture and skin was closed with skin sandy zip tie The patient was then placed in a sterile dressing and a postoperative brace extubated and transferred to recovery room in stable condition. Anesthesia: GETA Surgeon: Martin El Was there an quality assistant present: No Estimated blood loss (cc): 400 Condition: stable Disposition: PACU
[2017-12-03] MEDS ORDERED: Acetaminophen IV 1,000 MG/100 ML INFUS..BTL ONE (20:23)
[2017-12-03] MEDS: *HR* Promethazine 25 MG/ML VIAL IVP PRN ×2 (21:05→21:10)
[2017-12-03 21:36] LABS: Hematocrit 36.8 % (35.3-44.9); Hemoglobin 12.2 g/dL (11.5-15.4)
--- NOTE | 2017-12-03 21:38 | Anesthesia Procedures ---
Date of Encounter: 12/03/17 Time of Encounter: : Procedures: Anesthesia - Nerve Block Procedure Date: 12/03/17 Time: : Surgical Procedure: left total knee Checklist: Correct Patient Identifier, Correct procedure, History checked Correct side: Left Monitor Applied: EKG, BP, Pulse Oximetry Indication: Post Op Analgesia Block Type: Femoral Catheter placed: No Sterile Technique: Yes Ultrasound used: Yes Anatomy identified: Yes Visual spread of Local: Yes Neuro Stimulation: No Blood on Needle Aspiration: No Smooth Injection of Local: No Pain with Injection of Local: No Prep: Chlorhexadine Needle: 21 x 100 mm Stimuplex Local: Ropivacaine (12ml 0.2% rop plain, 4ml 2% lido) Volume (cc): 16 Number of Attempts: 1 Complications: None/effective block Vitals: vss though out, block per request, patient c/o 9/10 anterior knee, decision to block femoral as rescue.
--- NOTE | 2017-12-03 21:55 | Anesthesia Evaluation Post Op ---
Date of Encounter: 12/03/17 Time of Encounter: 21:49 - Vital Signs Vital Signs: vss - Lungs Lungs: Clear Ascult./Percussion - Airway Airway: Non-obstructed - Cardiovascular Baseline Rhythm - Mental Status Mental Status: Asleep with brisk response to light stimulation - Pain Pain Scale used: Dino (Faces) (tolerable) - Nausea Vomiting Nausea Vomiting: Not Present - Hydration Hydration: Ice chips - Discharge PostOp Status: Transfer Patient to floor
[2017-12-04] MEDS ORDERED: Sennosides 8.6 MG TABLET PO PRN (00:39)
[2017-12-04] MEDS ORDERED: Temazepam 15 MG CAPSULE PO PRN (00:39)
[2017-12-04] MEDS ORDERED: Ondansetron 4 MG/2 ML VIAL IVP PRN (00:39)
[2017-12-04] MEDS ORDERED: traMADol 50 MG TABLET PO PRN (00:39)
[2017-12-04] MEDS ORDERED: *HR* OxyCODONE/APAP 5/325 TABLET PO PRN (00:39)
[2017-12-04] MEDS ORDERED: MOM Conc 10 ML UD.LIQ PO PRN (00:39)
[2017-12-04] MEDS ORDERED: Naloxone 0.4 MG/ML INJ IVP PRN (00:39)
[2017-12-04] MEDS: Clindamycin 900 MG/50 ML 900 MG/50 ML IV.SOLN IVPB SCH ×2 (01:28→08:40)
[2017-12-04 01:33] LABS: BUN/Creatinine Ratio 18 (6-26); Blood Urea Nitrogen 12 mg/dL (8-23); Calcium 8.8 mg/dL (8.6-10.3); Carbon Dioxide 23 mEq/L (23-29); Chloride 106 mEq/L (98-107); Glucose 153 mg/dL (70-105); Osmolality,Calculated 287 (280-300); Potassium 3.7 mEq/L (3.5-5.1); Sodium 137 mEq/L (136-145); eGFR For African Americans > 60 (> 60); eGFR For Non-African Americans > 60 (> 60)
[2017-12-04 01:41] LABS: Hematocrit 36.4 % (35.3-44.9); Hemoglobin 12.4 g/dL (11.5-15.4)
[2017-12-04] MEDS: Ringers Solution, Lactated 1,000 ML IVC SCH (04:49)
[2017-12-04] MEDS: *HR* Enoxaparin 30 MG/0.3 ML SYRINGE SQ SCH ×2 (04:50→17:32)
[2017-12-04] MEDS: *HR* OxyCODONE Immed Rel 5 MG TABLET PO PRN ×4 (05:01→21:03)
--- NOTE | 2017-12-04 06:52 | Orthopedics Progress Note ---
Date of Encounter: 12/04/17 Time of Encounter: 06:52 - Assessment and Plan (1) Obesity (BMI 35.0-39.9 without comorbidity) Current Visit: Yes Status: Chronic (2) Spondylolisthesis Current Visit: No Status: Chronic Qualifiers: Spinal region: lumbar Qualified Code(s): M43.16 - Spondylolisthesis, lumbar region (3) Lumbar stenosis Current Visit: No Status: Chronic Qualifiers: Neurogenic claudication status: unspecified Qualified Code(s): M48.061 - Spinal stenosis, lumbar region without neurogenic claudication (4) Loosening of knee joint prosthesis Current Visit: No Status: Chronic Qualifiers: Encounter type: subsequent encounter Qualified Code(s): T84.038D - Mechanical loosening of other internal prosthetic joint, subsequent encounter; Z96.659 - Presence of unspecified artificial knee joint (5) HTN (hypertension) Current Visit: No Status: Chronic Qualifiers: Hypertension type: essential hypertension Qualified Code(s): I10 - Essential (primary) hypertension (6) HLD (hyperlipidemia) Current Visit: No Status: Acute Qualifiers: Hyperlipidemia type: unspecified Qualified Code(s): E78.5 - Hyperlipidemia , unspecified (7) Status post revision of total knee Current Visit: No Status: Acute Qualifiers: Laterality: left Qualified Code(s): Z96.652 - Presence of left artificial knee joint Subjective Interval history: Patient was seen this morning doing well without complaints. Afebrile vital signs stable. Operative extremity: Neurovascularly intact Dressing clean dry and intact Calves nontender Assessment and plan: Continue with postoperative care Hematocrit 36 Objective Vital signs: Vital Signs Temp Pulse Resp BP Pulse Ox 12/04/17 03:58 98.7 F 99 16 117/77 99 12/04/17 01:15 98.6 F 101 14 123/88 96 12/04/17 00:00 97.8 F 96 14 129/83 97 12/03/17 23:05 97.5 F L 94 14 131/84 98 12/03/17 22:35 97.8 F 90 16 125/84 97 12/03/17 22:20 96 12/03/17 22:00 97.5 F L 84 16 122/83 98 12/03/17 21:46 97.8 F 81 14 145/76 96 12/03/17 21:36 97.8 F 82 16 146/71 97 12/03/17 21:26 85 14 144/60 96 12/03/17 21:16 82 14 144/53 94 12/03/17 21:06 97.9 F 85 14 144/77 96 12/03/17 20:56 81 16 147/84 98 12/03/17 20:46 84 16 155/91 96 12/03/17 20:36 97.3 F L 97 12 152/89 95 12/03/17 18:31 86 16 146/95 97 12/03/17 18:18 89 16 133/88 97 12/03/17 18:05 83 16 160/98 98 12/03/17 15:36 98.3 F 78 16 138/89 94 Intake and Output 12/03/17 12/03/17 12/04/17 15:59 23:59 07:59 Intake Total 50 / 50 Output Total 400 / 400 Balance -400 / -400 50 / 50 Intake: IV Fluids 50 / 50 Cleocin Premix 900 MG/50 ML 900 50 / 50 mg In 50 ml @ 50 mls/hr IVPB Q8HR [facility] Rx#:[id number] Output: Estimated Blood Loss 400 / 400 Other: Weight 81.647 kg - Labs CBC & BMP: 12/04/17 01:00 12/04/17 01:00 Labs: Abnormal lab results Glucose 153 mg/dL (70-105) H 12/04/17 01:00 - VTE Documentation of Mechanical Device: Venous foot pump, device Consult Discharge Plan - Plan Referrals: Dionna Buckner [Primary Care Provider] -
--- NOTE | 2017-12-04 16:37 | Physician Discharge Referral ---
ExtendedCare Referral Info Transfer To: [facility] Provider in Charge: Dr. El - Diagnosis (1) Status post revision of total knee Priority: Primary Status: Acute (2) Loosening of knee joint prosthesis Priority: Secondary Status: Chronic (3) Obesity (BMI 35.0-39.9 without comorbidity) Priority: Secondary Status: Chronic (4) HLD (hyperlipidemia) Priority: Secondary Status: Acute (5) HTN (hypertension) Priority: Secondary Status: Chronic (6) Lumbar stenosis Priority: Secondary Status: Chronic (7) Spondylolisthesis Priority: Secondary Status: Chronic Expected Duration of Placement: <30 days Prognosis: Good Aware of Diagnosis: Patient Aware of Prognosis: Patient - Transfer Medications Home Medications: Fluticasone Propionate Nasal [Flonase] 1 spr NS DAILY PRN 05/16/16 [History] Loratadine [Claritin] 10 mg PO DAILY 05/16/16 [History] Nystatin Cream [Mycostatin Cream] 1 appl TP BID PRN 05/16/16 [History] Omeprazole [PriLOSEC] 40 mg PO DAILY 05/16/16 [History] Enoxaparin [Lovenox] 30 mg SQ Q12HR 10 Days #20 syr 12/02/17 [Rx] OxyCODONE Immed Rel [Roxicodone 5 MG] 5 mg PO Q6HR PRN 7 Days #28 tablet [Rx] Amlodipine Besylate 10 mg PO DAILY 12/03/17 [History] Gabapentin [Neurontin] 600 mg PO TID 12/03/17 [History] Oxybutynin Chloride [Ditropan Xl] 5 mg PO BID 12/03/17 [History] Ranitidine HCl [Heartburn Relief] 150 mg PO HS 12/03/17 [History] Simvastatin [Zocor] 5 mg PO HS 12/04/17 [History] clonazePAM [Klonopin] 1 mg PO TID PRN 12/04/17 [History] Allergies/Adverse Reactions: 3 Allergy/AdvReac Type Severity Reaction Status Date / Time iodine Allergy Rash Verified 12/03/17 15:34 niacin Allergy Hives Verified 12/03/17 15:34 [From Niaspan Extended-Release] Penicillins Allergy Hives Verified 05/16/16 07:08 Sulfa (Sulfonamide Allergy Rash Verified 12/03/17 15:34 Antibiotics) aspirin AdvReac Nausea Verified 05/16/16 07:08 - Respiratory Orders Smoking Cessation: Smoking cessation has been advised. For more information, call the [place] Tobacco Quit Line at 9-676-BNMS-NOW. - Ancillary Orders May use pressure relief devices daily prn, May go on JASON w/family/respon democrat w /meds at nurse discretion PRN, May consult with Dentist, [employer], [employer]ill Rig Operator PRN - Mobility Orders Chair, Ambulate - Rehabiliation Orders Rehab Potential: Good Rehab Orders: Evaluation for Physical Therapy, Evaluation for Occupational Therapy Other: Total Knee replacement Precautions x 6 weeks Apply cold therapy wrap 3-6x/day for 20 minutes at a time. Encourage ambulation throughout the day and incentive spirometer 10x/hour. Elevate affected extremity above heart as tolerated. Brace: Wear knee immobilizer at night x 2 weeks. - Treatments Skin tear care topically daily PRN per policy List/Other: Honeycomb placed. Keep dressing intact until first follow up appointment. If > 50% saturated, notify office, remove dressing and place appropriate dressing back in place. Dressing is water resistant, not water-proof. OK to shower, but do not get dressing wet. - Diet Orders Regular CERTIFICATION: I certify that the transfer of the above named patient to an Extended Care Facility is necessary for the continuing treatment of the diagnosis listed. The above information is true and accurate reflection of patient's current condition. Confidential - Redisclosure prohibited without a patient's written consent.
--- NOTE | 2017-12-04 16:46 | Event Note ---
Date of Encounter: 12/04/17 Time of Encounter: 12:30 PCR- POD#1 s/p Left revision robotic-assisted Total knee replacement 12/03/17 PCR - Patient seen at bedside. Pain control: Adequate to knee but she has had increase in calf pain starting this morning worse with weight bearing and constant. Will order doppler to rule out DVT. Labs: H/H - 12.4/36.4 Afebrile, vital signs stable. Operative extremity: Neurovascularly intact, Dressing minimal drainage, Calves tender to palpation Participating in PT. Recommend placement to SNF/ECF. All questions and concerns addressed. Educated on use of incentive spirometer, ambulation, and hydration. Patient educated on post-operative restrictions and care. Addressed: pending doppler D/C plan: [facility] 12/06/17
[2017-12-04] MEDS ORDERED: *HR* PHENYLEPHRINE 1,000 MCG/10 ML SYRINGE IVP ONE (20:30)
[2017-12-04] MEDS ORDERED: Neostigmine Methylsulfate 3 MG/3 ML SYRINGE ONE (20:33)
[2017-12-04] MEDS ORDERED: *HR* Morphine 10 MG/ML VIAL ONE (21:02)
[2017-12-04] MEDS ORDERED: *HR* Metoprolol 5 MG/5 ML VIAL IVP ONE (21:39)
[2017-12-04] MEDS ORDERED: *HR* Rivaroxaban 10 MG TABLET PO SCH (21:51)
[2017-12-05] MEDS: *HR* OxyCODONE Immed Rel 5 MG TABLET PO PRN ×5 (00:45→21:48)
[2017-12-05 01:46] LABS: Hematocrit 30.9 % (35.3-44.9)
[2017-12-05 01:49] LABS: Hemoglobin 10.6 g/dL (11.5-15.4)
[2017-12-05 01:50] LABS: BUN/Creatinine Ratio 21 (6-26); Blood Urea Nitrogen 15 mg/dL (8-23); Calcium 8.9 mg/dL (8.6-10.3); Carbon Dioxide 26 mEq/L (23-29); Chloride 108 mEq/L (98-107); Glucose 153 mg/dL (70-105); Osmolality,Calculated 280 (280-300); Potassium 3.6 mEq/L (3.5-5.1); Sodium 133 mEq/L (136-145); eGFR For African Americans > 60 (> 60); eGFR For Non-African Americans > 60 (> 60)
--- NOTE | 2017-12-05 06:48 | Orthopedics Progress Note ---
Date of Encounter: 12/05/17 Time of Encounter: 06:48 - Assessment and Plan (1) Obesity (BMI 35.0-39.9 without comorbidity) Current Visit: Yes Status: Chronic (2) Spondylolisthesis Current Visit: No Status: Chronic Qualifiers: Spinal region: lumbar Qualified Code(s): M43.16 - Spondylolisthesis, lumbar region (3) Lumbar stenosis Current Visit: No Status: Chronic Qualifiers: Neurogenic claudication status: unspecified Qualified Code(s): M48.061 - Spinal stenosis, lumbar region without neurogenic claudication (4) Loosening of knee joint prosthesis Current Visit: No Status: Chronic Qualifiers: Encounter type: subsequent encounter Qualified Code(s): T84.038D - Mechanical loosening of other internal prosthetic joint, subsequent encounter; Z96.659 - Presence of unspecified artificial knee joint (5) HTN (hypertension) Current Visit: No Status: Chronic Qualifiers: Hypertension type: essential hypertension Qualified Code(s): I10 - Essential (primary) hypertension (6) HLD (hyperlipidemia) Current Visit: No Status: Acute Qualifiers: Hyperlipidemia type: unspecified Qualified Code(s): E78.5 - Hyperlipidemia , unspecified (7) Status post revision of total knee Current Visit: No Status: Acute Qualifiers: Laterality: left Qualified Code(s): Z96.652 - Presence of left artificial knee joint Subjective Interval history: Patient was seen this morning doing well without complaints. Afebrile vital signs stable. Operative extremity: Neurovascularly intact Dressing clean dry and intact Calves nontender Assessment and plan: Continue with postoperative care Hematocrit 30 patient with positive Doppler for DVT we will treat with anticoagulation. Objective Vital signs: Vital Signs Temp Pulse Resp BP Pulse Ox 12/05/17 04:10 99.3 F 108 16 131/74 94 12/04/17 23:44 99.3 F 110 16 145/75 96 12/04/17 18:37 99.2 F 105 16 121/74 97 12/04/17 15:30 99.0 F 93 16 107/65 97 12/04/17 11:15 97.9 F 90 16 114/63 97 12/04/17 08:05 98.8 F 99 16 104/66 95 Intake and Output 12/04/17 12/04/17 12/05/17 15:59 23:59 07:59 Intake Total 240 / 240 300 / 300 Balance 240 / 240 300 / 300 Intake: Oral 240 / 240 300 / 300 Other: Meal Lunch Percent of Meal Consumed 75% # Voids 1 # Urine Diapers 1 - Labs CBC & BMP: 12/05/17 01:06 12/05/17 01:06 Labs: Abnormal lab results Hgb 10.6 g/dL (11.5-15.4) L D 12/05/17 01:06 Hct 30.9 % (35.3-44.9) L 12/05/17 01:06 Sodium 133 mEq/L (136-145) L 12/05/17 01:06 Chloride 108 mEq/L (98-107) H 12/05/17 01:06 Glucose 153 mg/dL (70-105) H 12/05/17 01:06 - VTE Documentation of Mechanical Device: Venous foot pump, device Consult Discharge Plan - Plan Referrals: Dionna Buckner [Primary Care Provider] -
[2017-12-05] MEDS: Ringers Solution, Lactated 1,000 ML IVC SCH ×2 (11:58→17:45)
[2017-12-05] MEDS: *HR* Rivaroxaban 15 MG TABLET PO SCH ×2 (12:01→21:48)
--- NOTE | 2017-12-05 15:02 | Event Note ---
Date of Encounter: 12/05/17 Time of Encounter: 15:01 PCR- POD#2 s/p Left revision robotic-assisted Total knee replacement 12/03/17 PCR - Patient seen at bedside. DX DVT on 12/04 - Xarelto started, RX printed Labs: H/H - 12.4/36.4 - 12/05 - dropped to 10.1 - type and cross today Afebrile, vital signs stable. Operative extremity: Neurovascularly intact, Dressing minimal drainage, Calves tender to palpation Participating in PT. Recommend placement to SNF/ECF. All questions and concerns addressed. Educated on use of incentive spirometer, ambulation, and hydration. Patient educated on post-operative restrictions and care. D/C plan: [facility] 12/06/17
[2017-12-06 01:41] LABS: Hematocrit 31.7 % (35.3-44.9); Hemoglobin 10.4 g/dL (11.5-15.4)
[2017-12-06 01:59] LABS: BUN/Creatinine Ratio 18 (6-26); Blood Urea Nitrogen 12 mg/dL (8-23); Calcium 9.1 mg/dL (8.6-10.3); Carbon Dioxide 25 mEq/L (23-29); Chloride 103 mEq/L (98-107); Glucose 115 mg/dL (70-105); Osmolality,Calculated 287 (280-300); Sodium 138 mEq/L (136-145); eGFR For African Americans > 60 (> 60); eGFR For Non-African Americans > 60 (> 60)
[2017-12-06 07:12] VITALS: BP 105/67
[2017-12-06] MEDS: *HR* Rivaroxaban 15 MG TABLET PO SCH (07:35)
[2017-12-06] MEDS: *HR* OxyCODONE Immed Rel 5 MG TABLET PO PRN (07:41)
--- NOTE | 2017-12-06 08:01 | Orthopedics Progress Note ---
Date of Encounter: 12/06/17 Time of Encounter: 08:00 - Assessment and Plan (1) Obesity (BMI 35.0-39.9 without comorbidity) Current Visit: Yes Status: Chronic (2) Spondylolisthesis Current Visit: No Status: Chronic Qualifiers: Spinal region: lumbar Qualified Code(s): M43.16 - Spondylolisthesis, lumbar region (3) Lumbar stenosis Current Visit: No Status: Chronic Qualifiers: Neurogenic claudication status: unspecified Qualified Code(s): M48.061 - Spinal stenosis, lumbar region without neurogenic claudication (4) Loosening of knee joint prosthesis Current Visit: No Status: Chronic Qualifiers: Encounter type: subsequent encounter Qualified Code(s): T84.038D - Mechanical loosening of other internal prosthetic joint, subsequent encounter; Z96.659 - Presence of unspecified artificial knee joint (5) HTN (hypertension) Current Visit: No Status: Chronic Qualifiers: Hypertension type: essential hypertension Qualified Code(s): I10 - Essential (primary) hypertension (6) HLD (hyperlipidemia) Current Visit: No Status: Acute Qualifiers: Hyperlipidemia type: unspecified Qualified Code(s): E78.5 - Hyperlipidemia , unspecified (7) Status post revision of total knee Current Visit: No Status: Acute Qualifiers: Laterality: left Qualified Code(s): Z96.652 - Presence of left artificial knee joint Subjective Interval history: Patient was seen this morning doing well without complaints. Afebrile vital signs stable. Operative extremity: Neurovascularly intact Dressing clean dry and intact Calves nontender Assessment and plan: Continue with postoperative care Stable for discharge DC brace Objective Vital signs: Vital Signs Temp Pulse Resp BP Pulse Ox 12/06/17 07:00 98.5 F 98 16 105/67 97 12/06/17 03:39 98.2 F 104 16 102/64 97 12/05/17 23:24 98.8 F 108 16 116/68 96 12/05/17 19:37 98.4 F 103 16 120/72 95 12/05/17 15:16 98.4 F 109 16 137/73 98 12/05/17 11:27 97.7 F 95 22 133/75 96 12/05/17 08:27 94 Intake and Output 12/05/17 12/06/17 12/06/17 23:59 07:59 15:59 Intake Total 610 / 610 Balance 610 / 610 Intake: Oral 610 / 610 - Labs CBC & BMP: 12/06/17 01:09 12/06/17 01:09 Labs: Abnormal lab results Hgb 10.4 g/dL (11.5-15.4) L 12/06/17 01:09 Hct 31.7 % (35.3-44.9) L 12/06/17 01:09 Glucose 115 mg/dL (70-105) H 12/06/17 01:09 - VTE Documentation of Mechanical Device: Intermittent pneumatic compression device Consult Discharge Plan - Plan Additional Instructions: Discharge Instructions: Total Knee Replacement Please call [facility] ([phone]), your Primary Care Physician, or report to the Emergency Room if you have any of the following symptoms: Nausea, vomiting, fever greater that 101.5, swelling, chest pain, shortness of breath, increased pain/redness/drainage/odor for your incision site, numbness/ tingling, or any other concerning symptoms. ACTIVITY:Weight-bearing as tolerated. You may progress off support (crutches or walker) as tolerated. MEDICATIONS: Upon discharge resume your home medications. Take all the medications as prescribed. Take a stool softener if taking narcotic pain medications. Stool softeners are only effective if you drink enough fluids. Drink 6-8 glass of water or fluids a day, unless this is not allowed for another health problem. Despite using stool softeners, if you haven't had a bowel movement in 3 days, please switch to a gentle laxative. Gentle laxatives are sold over the counter. You should have a bowel movement within 24 hours, if not call the office. You will be discharged from the hospital with a prescription for pain medication. You are encouraged to decrease the use of narcotic pain medication as tolerated. Should you require a refill, please call the office. [facility] prescribes narcotic pain medication for only 4-6 weeks after surgery. If you require pain medication beyond this time period, you may be referred to your Primary Care Physician or to the Pain Clinic for further evaluation. Plan ahead for refills on pain medication as many narcotics either need to be picked up at the office or mailed. It is best to call 48-72 hours in advance of needing a prescription refill so you don't run out of medication. To help control the post-operative pain, you may take NSAIDs (Aleve,Advil, Motrin, Ibuprofen, Naprosyn) or Tylenol as prescribed on the bottle in addition to the pain medication. ANTICOAGULATION (blood thinners): Continue your Aspirin, Lovenox or Coumadin as prescribed to help prevent a blood clot in the leg or in the lungs. As long as your incision remains dry and you tolerate the NSAIDs (Aleve, Advil, Motrin, ibuprofen, naprosyn), it is OK to use the NSAIDS while you are taking your anticoagulation medication. Should your incision start to drain, stop the NSAID and contact our office. Common symptoms of blood clot in the legs include: localized pain, swelling, calf tenderness, redness or discoloration of the skin. Blood clot in the lung symptoms include: shortness of breath, rapid pulse, sweating, and chest pain that worsens with deep breathing, coughing up blood, lightheadedness, feelings of anxiety. If you experience any of these symptoms notify your physician immediately, go to the emergency room, or if having trouble breathing, call 911. WOUND CARE: Leave the dressing on for 7 to 10days. You may change the dressing if it becomes saturated greater than 50%. Do not get the dressing wet at anytime. Wash your hands with antibacterial soap, rinse and dry prior to any wound care. If you have sandy the visiting nurse or rehab facility can remove the stapes 10-14 days after surgery and place steri-strips across the wound. Leave the steri-strips in place until they fall off on their won. You may let water from the shower run on top of the steri-strips. If you do not have a visiting nurse or rehab facility, you will need to return to the office at 10-14 days for the sandy to be removed. If you have itching or redness around the dressing call the office. FOLLOW-UP: Please follow up with your surgeon in the orthopedic clinic in 4 weeks from the day of surgery. If you have sandy that need to be removed, you will need to come back to the office in 10-14 days from the day of surgery. Referrals: Dionna Buckner [Primary Care Provider] - Martin El MD [Partnered Physician] - 01/02/18 4:40 pm Ayah Portillo, PAC [Physician Mix Technician] - 12/13/17 9:45 am (ALSO, 12/21/17 @ 9AM) Prescriptions: Rivaroxaban [Xarelto] 15 mg PO BID 21 Days #42 tablet
--- NOTE | 2017-12-06 22:38 | Event Note ---
Date of Encounter: 12/06/17 Time of Encounter: 08:30 PCR- POD#3 s/p Left revision robotic-assisted Total knee replacement 12/03/17 DX DVT on 12/04 - Xarelto started, RX printed DISCONTINUE BRACE D/C plan: [facility] 12/06/17
== END 2017-12-06 09:45 | DRG 468 ==
LOC: SAMDAY 14:48 → 3NENU 22:04
PROVIDERS: ADMIT Orthopaedic Surgery; ATTEND Orthopaedic Surgery